=== PATIENT | female | born 1985 | race Caucasian/White ===

== ENCOUNTER 2016-12-23 18:20 | Emergency (ER) | payer OTHER ==
--- NOTE | 2016-12-23 18:41 | ERPHSYRPT ---
- History of Present Illness Time Seen by Provider: 12/23/16 18:37 Source: patient Exam Limitations: no limitations Patient Subjective Stated Complaint: PT REPORTS SEVERE PAIN ET SWELLING TO RIGHT JAW BEGINNING YESTERDAY-UNSURE OF FEVER Triage Nursing Assessment: PT PALE WARM ET [id number] NOTED TO RIGHT JAW -PT TALKATIVE WITH EASE-NO DROOLING NOTED-RESP NONLABORED Physician History: The patient is a 31-year-old female with a friend and planing of right lower jaw tooth pain that began yesterday and has increased today. There is swelling now the right lower jaw. She has tried hydrocodone 7.5 mg today without relief. She has poor dentition and has had problems like this in the past. Timing/Duration: gradual onset Severity: severe ENT Location: dental Prearrival Treatment: prescription meds Modifying Factors: Improves With: nothing Associated Symptoms: facial pain/swelling Allergies/Adverse Reactions: bee pollen [Bee Pollen] Allergy (Verified 12/23/16 18:30) Penicillins Adverse Reaction (Intermediate, Verified 12/23/16 18:30) Hives Home Medications: Hydrocodone/Acetaminophen [Hydrocodon-Acetaminoph 7.5-500] 1 each PO QID [History] Venlafaxine HCl [Effexor] 100 mg PO DAILY 12/23/16 [History] Hx Tetanus, Diphtheria Vaccination/Date Given: Yes Hx Influenza Vaccination/Date Given: No Hx Pneumococcal Vaccination/Date Given: No Immunizations Up to Date: Yes - Review of Systems Constitutional: No Fever, No Chills Eyes: No Symptoms Ears, Nose, & Throat: Mouth Pain Respiratory: No Cough, No Dyspnea Cardiac: No Chest Pain, No Edema, No Syncope Abdominal/Gastrointestinal: No Abdominal Pain, No Nausea, No Vomiting, No Diarrhea Genitourinary Symptoms: No Dysuria Musculoskeletal: No Back Pain, No Neck Pain Skin: No Rash Neurological: No Dizziness, No Focal Weakness, No Sensory Changes Psychological: No Symptoms Endocrine: No Symptoms Hematologic/Lymphatic: No Symptoms Immunological/Allergic: No Symptoms All Other Systems: Reviewed and Negative - Past Medical History Pertinent Past Medical History: Yes Neurological History: No Pertinent History ENT History: No Pertinent History Cardiac History: No Pertinent History Respiratory History: No Pertinent History Endocrine Medical History: No Pertinent History Musculoskeletal History: Other GI Medical History: No Pertinent History History: No Pertinent History Psycho-Social History: Anxiety Female Reproductive Disorders: Other Other Medical History: SCOLIOSIS, R hip dislocates - Past Surgical History Past Surgical History: Yes Neuro Surgical History: No Pertinent History Cardiac: No Pertinent History Respiratory: No Pertinent History Gastrointestinal: No Pertinent History Genitourinary: No Pertinent History Musculoskeletal: No Pertinent History Female Surgical History: Dilation & Curettage, Other Other Surgical History: HAD D&C 2007 - Social History Smoking Status: Current every day smoker How long have you smoked: YRS Exposure to second hand smoke: Yes Drug Use: none Patient Lives Alone: No - Female History Hx Last Menstrual Period: 2 WKS AGO Hx Now: No - Nursing Vital Signs Nursing Vital Signs: Initial Vital Signs Temperature 97.7 F Temperature Source Oral Pulse Rate 115 Respiratory Rate 22 Blood Pressure [Right Arm] 138/77 Pain Intensity 10 - Physical Exam General Appearance: moderate distress Eye Exam: bilateral eye: normal inspection Nasal Exam: normal inspection Throat Exam: dental tenderness (Examination of the dentition reveals poor dentition and decaying teeth. Her right anterior mandibular molar has completely decayed and there is surrounding gum tenderness and redness.) Neck Exam: supple Cardiovascular/Respiratory Exam: normal breath sounds, regular rate/rhythm Abdominal Exam: non-tender, soft Neurologic Exam: alert, oriented x 3, sensation nml, No motor deficits Skin Exam: normal color, warm, dry SpO2 Interpretation: normal SpO2: 96 Oxygen Delivery: Room Air Ordered Tests: Medication Summary Discontinued Medications Generic Name Dose Route Start Last Admin Trade Name Freq PRN Reason Stop Dose Admin Ceftriaxone Sodium 1,000 mg 12/23/16 18:51 Rocephin 1000 Mg Inj IM 12/23/16 18:52 STAT ONE Ketorolac Tromethamine 60 mg 12/23/16 18:47 Toradol 30 Mg Injection IM 12/23/16 18:48 STAT ONE - Departure Time of Disposition: 19:00 Departure Disposition: Home Clinical Impression: Dental abscess Condition: Stable Critical Care Time: No Referrals: MARCOS ACUÑA [Primary Care Provider] - Additional Instructions: You have a dental abscess. You were given an antibiotic, called Rocephin, 1 g by IM injection in the ER. This will suffice until tomorrow when he will obtain a prescription for clindamycin 300 mg 4 times a day for 10 days. You were also given a Toradol 60 mg injection IM the ER. If more pain relief is needed, continue to take the hydrocodone 7.5 mg you have at home as previously directed. Follow-up with a dentist. Prescriptions: Clindamycin HCl 1 cap PO QID #40 capsule
[2016-12-23] MEDS ORDERED: TORAdol 30 mg Injection IM ONE (18:47)
[2016-12-23] MEDS ORDERED: Rocephin 1000 MG INJ IM ONE (18:51)
[2016-12-23] MEDS ORDERED: Rocephin 1000 MG INJ ONE (19:06)
[2016-12-23] MEDS ORDERED: TORAdol 30 mg Injection ONE (19:06)
[2016-12-23] MEDS ORDERED: XYLOCAINE 1% HCL 20 ML MDV ONE (19:07)
[2016-12-23 20:06] VITALS: BP 140/80; PULSE 84; O2SAT 99
== END 2016-12-23 20:04 | disposition home or self-care (01) ==
LOC: ED 18:20
DX: K04.7 Periapical abscess without sinus (principal)
CPT/HCPCS: 96372; 99284; J0696; J1885